=== PATIENT | female | born 1990 | race Hispanic/Latino ===

== ENCOUNTER 2021-07-25 21:20 | Emergency (ER) | payer MEDICARE, MEDICAID ==
[2021-07-25 22:24] LABS: APPEARANCE,URINE Clear (CLEAR); BILIRUBIN,URINE Negative (NEGATIVE); COLOR,URINE Yellow (YELLOW); GLUCOSE, URINE (UA) Negative (NEGATIVE); KETONES,URINE Negative (NEGATIVE); LEUKOCYTE ESTERASE ,URINE Negative (NEGATIVE); NITRATE,URINE Negative (NEGATIVE); OCCULT BLOOD,URINE Negative (NEGATIVE); PH,URINE 6.5 (5.0-8.0); PROTEIN,URINE Negative (NEGATIVE); UROBILINOGEN,URINE 0.2 mg/dL (0.2-1.0)
[2021-07-25] MEDS ORDERED: ONDANSETRON 4MG INJ IVP ONE (22:30)
[2021-07-25] MEDS ORDERED: KETOROLAC 30MG VIAL (30MG/ML) IV ONE (22:30)
[2021-07-25] MEDS ORDERED: LACTATED RINGERS 1000ML 1,000 ML IV ONE (22:30)
[2021-07-25 22:50] LABS: BASOPHILS % (AUTO) 0.5 % (0.0-5.0); EOSINOPHILS % (AUTO) 3.8 % (0.0-8.0); HEMATOCRIT 38.9 % (36-48); LYMPHOCYTES % (AUTO) 43.8 % (21.0-51.0); MEAN CORPUSCULAR HEMOGLOBIN 27.3 pg (27.0-33.0); MEAN CORPUSCULAR HGB CONC 32.4 g/dL (32.0-36.0); MEAN CORPUSCULAR VOLUME 84.2 fL (79-99); MONOCYTES % (AUTO) 6.7 % (3.0-13.0); PLATELET COUNT (AUTO) 234 K/uL (130-400); RED BLOOD CELL COUNT(AUTO) 4.62 MIL/uL (4.00-5.50); RED CELL DISTRIBUTION WIDTH 13.5 % (11.0-15.5); WHITE BLOOD COUNT (AUTO) 10.9 K/uL (4.8-10.8)
[2021-07-25 23:04] LABS: CREATININE 0.6 mg/dL (0.5-1.5)
[2021-07-25 23:09] LABS: ALBUMIN 3.7 g/dL (3.5-5.0); BILIRUBIN,TOTAL 0.1 mg/dL (0.2-1.0); TOTAL PROTEIN, SERUM 7.6 g/dL (6.0-8.3)
[2021-07-26] MEDS ORDERED: PANTOPRAZOLE 40 MG/VIAL ONE (00:44)
[2021-07-26] MEDS ORDERED: METOCLOPRAMIDE 10 MG/2 ML VIAL ONE (00:44)
[2021-07-26] MEDS ORDERED: PANTOPRAZOLE 40 MG/VIAL IVP ONE (01:00)
[2021-07-26] MEDS ORDERED: 0.9%NACL 1000ML 1,000 ML IV ONE (01:00)
[2021-07-26] MEDS ORDERED: METOCLOPRAMIDE 10 MG/2 ML VIAL IVP ONE (01:00)
[2021-07-26 01:08] VITALS: BP 132/84
[2021-07-26] MEDS ORDERED: IOHEXOL 350 MG/ML 100ML INFUS..BTL IV ONE (01:25)
[2021-07-26] MEDS ORDERED: ONDA4TAB10 PO (02:59)
[2021-07-26] MEDS ORDERED: LACT10SO5 PO (02:59)
[2021-07-26] MEDS ORDERED: DICY20TA2 PO (02:59)
[2021-07-26] MEDS ORDERED: METO-296 PO (02:59)
== END 2021-07-26 03:26 | disposition home or self-care (01) ==
LOC: EDH 21:20
DX: R10.13 Epigastric pain (principal); E86.9 Volume depletion, unspecified; R11.0 Nausea
CPT/HCPCS: 36415; 74177; 76705; 80053; 81003; 83690; 84484; 85025; 93005; 96361 ×2; 96374; 96375 ×2; 99285; C9113; J1885; J2405; J2765; J7030; J7120; Q9967